=== PATIENT | female | born 1975 | race Caucasian/White ===

== ENCOUNTER 2017-10-23 13:48 | Emergency (ER) | payer OTHER, SELFPAY ==
[2017-10-23 14:04] VITALS: BP 131/73; PULSE 57; RESP 16; TEMP 36.9; O2SAT 100; BMI 41.9
--- NOTE | 2017-10-23 14:09 | DI.RAD.S_ITS ---
PROCEDURE: XR KNEE RT 3V INDICATIONS: TWISTED RIGHT KNEE TECHNIQUE: 3 views of the knee were acquired. COMPARISON: None. FINDINGS: Bones: No fractures or dislocations. No suspicious bony lesions. Soft tissues: No joint effusion. No suspicious soft tissue calcifications. IMPRESSION: No fracture or dislocation. Dictated by: Melida Watson M.D. on 10/23/2017 at 14:54 Approved by: Melida Watosn M.D. on 10/23/2017 at 14:54
--- NOTE | 2017-10-23 15:56 | ED.LOWEXIN ---
HPI - Extremity Injury (Lower) <SPIKE Morse - Last Filed: 10/23/17 23:10> General Chief Complaint: Extremity Injury, Lower Stated Complaint: HURT RT KNEE Time Seen by Provider: 10/23/17 15:56 Source: patient Mode of arrival: wheelchair Limitations: no limitations History of Present Illness HPI Narrative: 42-year-old female here for complaint of pain and swelling to her right knee. She states that [place] was on [place] boat when she accidentally slipped on the ladder causing her to twist her right knee in a ground level fall. She reports increased pain with weight-bearing and movement of the right knee. She denies any other injuries or concerns at this time. Pain is to the medial aspect of the right knee. She denies any direct impact to the knee. Incident happened earlier today. No other concerns or complaints MD complaint: knee injury Related Data Allergies Allergy/AdvReac Type Severity Reaction Status Date / Time ciprofloxacin [From Cipro] Allergy Verified 10/23/17 14:38 Review of Systems <SPIKE Morse - Last Filed: 10/23/17 23:10> Constitutional Denies chills, Denies fever(s), Denies lethargy and Denies weakness Eyes Denies change in vision, Denies eye discharge, Denies irritation and Denies loss of vision ENT Ears, Nose, Mouth, and Throat: Denies change in voice, Denies neck pain and Denies sore throat Cardiovascular Denies chest pain, Denies irregular heart rhythm, Denies lightheadedness, Denies palpitations, Denies dyspnea, Denies dyspnea on exertion and Denies orthopnea Respiratory Denies cough, Denies dyspnea, Denies dyspnea on exertion and Denies wheezing Gastrointestinal Gastrointestinal: Denies abdominal pain, Denies change in bowel habits, Denies diarrhea, Denies nausea and Denies vomiting Genitourinary Denies hematuria, Denies flank pain, Denies urinary incontinence and Denies urinary urgency Musculoskeletal Denies neck pain Comments: Tenderness to the right knee Integumentary/Breasts Denies pruritus, Denies erythema, Denies rash and Denies wounds Neurologic Denies confusion, Denies loss of vision and Denies weakness Psychiatric Denies anxiety, Denies confusion, Denies depression, Denies homicidal ideation and Denies suicidal ideation Endocrine Denies palpitations Hematologic/Lymphatic Denies easy bruising Allergic/Immunologic Denies wheezing Exam <SPIKE Morse - Last Filed: 10/23/17 23:10> Initial Vital Signs Initial Vital Signs: Vital Signs Temperature 98.4 F 10/23/17 14:04 Pulse Rate 57 L 10/23/17 14:04 Respiratory Rate 16 10/23/17 14:04 Blood Pressure 131/73 H 10/23/17 14:04 Pulse Oximetry 100 10/23/17 14:04 Const General: cooperative and well developed Nutritional Appearance: well nourished Orientation: alert, awake, oriented x3 and not confused HENTX Mouth: oral mucosae normal and moist mucous membranes Eyes Conjunctivae: conjunctivae normal Sclera: sclerae normal Pupils: PERRL EOM: EOM intact bilaterally Resp Effort & Inspection: normal respiratory effort, able to speak in complete sentences, no respiratory distress and no use of accessory muscles Auscultation: clear to auscultation bilaterally, no rales, no rhonchi and no wheezes Cardio Rate: regular rate Rhythm: regular rhythm Heart Sounds: no click, no gallops, no murmurs and no rubs Skin General: no rashes or lesions noted, No jaundice and No petechiae Neuro General: alert, oriented x3, gait normal and no focal motor deficits Speech: speech normal Extrem Other: Right knee with no signs of trauma. No ecchymosis. No erythema. Positive swelling. Distal sensation is intact. Distal range of motion is intact. Distal pulses are intact. Negative anterior posterior drawer sign. Negative varus and valgus stress test. <Ananda Slaughter MD - Last Filed: 10/25/17 08:53> Initial Vital Signs Initial Vital Signs: Vital Signs Temperature 98.4 F 10/23/17 14:04 Pulse Rate 57 L 10/23/17 14:04 Respiratory Rate 16 10/23/17 14:04 Blood Pressure 131/73 H 10/23/17 14:04 Pulse Oximetry 100 10/23/17 14:04 Course <SPIKE Morse - Last Filed: 10/23/17 23:10> Orders Ordered: ED Orders 10/23/17 14:09 XR knee RT 3V Stat Vital Signs - 8 hr 10/23/17 14:04 Temperature 98.4 F Pulse Rate 57 L Respiratory Rate 16 Blood Pressure 131/73 H Pulse Oximetry 100 <Ananda Slaughter MD - Last Filed: 10/25/17 08:53> Orders Ordered: ED Orders 10/23/17 14:09 XR knee RT 3V Stat Vital Signs - 8 hr 10/23/17 14:04 Temperature 98.4 F Pulse Rate 57 L Respiratory Rate 16 Blood Pressure 131/73 H Pulse Oximetry 100 MDM - Extremity Injury (Lower) <SPIKE Morse - Last Filed: 10/23/17 23:10> MDM Narrative Medical decision making narrative: X-ray the right knee was obtained was negative for any acute findings. Signs and symptoms presents as acute sprain into the right knee. [id number] Tylenol Motrin as needed for any discomfort. Ice and elevation help with swelling over the next several days. She was attempted to be placed in a knee immobilizer for comfort and support however did not have any immobilizer that fit her well so she is placed in Jacky wraps along with crutches for nonweightbearing. Recommend following up with primary care provider later this week. If symptoms do not resolved consider MRI. For any worsening symptoms return to the emergency room. Discharge Plan Departure Patient Disposition: Home, Self-Care Clinical Impression: Right knee sprain Discharge Date/Time: 10/23/17 17:26 Interventions: ED Discharge Assessment Last Done: 10/23/17 17:26 Instructions: DI for Knee Sprain Activity Restrictions/Additional Instructions: X-ray of the right knee was obtained was negative for any acute fractures or dislocations. Signs and symptoms presents as an acute sprain to the right knee. Use Jacky wraps for comfort and support as directed along with crutches for nonweightbearing also use as directed. Use [id number] Tylenol or Motrin as needed for any discomfort. Ice and elevation help with any swelling over the next several days. Follow up with primary care provider later this week for re-evaluation. May need to have MRI of the right knee to rule out soft tissue injury if symptoms do not resolve. Return emergency room for any worsening symptoms. Referrals: [facility] [Provider Group] <Ananda Slaughter MD - Last Filed: 10/25/17 08:53> Sign Out Provider Sign Out Attestation: The PA/SOCCER [employer]ER functioned independently for the care of this pt, I was available, but not asked to participate in care. I am unable to determine appropriateness of management without personally examining the pt.
--- NOTE | 2017-10-23 16:59 | PC.NURSE ---
Calling insurance company to make sure will pay as travel insurance
== END 2017-10-23 17:26 | disposition home or self-care (01) ==
PROVIDERS: Emergency Provider Nurse Practitioner Family
DX: M25.561 Pain in right knee (principal)
CPT/HCPCS: 73562; 99283